=== PATIENT | male | born 1995 | race Caucasian/White ===

== ENCOUNTER 2018-02-24 07:19 | Emergency (ER) | payer MEDICAID, OTHER ==
[~2018-02-24] VITALS: Ht 195.6 cm; Wt 164.0 kg
[2018-02-24] MEDS ORDERED: KETOROLAC 30MG/ML VIAL IV STA (09:57)
[2018-02-24] MEDS ORDERED: SODIUM CHLORIDE 0.9% 1,000 ML IV ONE (09:57)
[2018-02-24] MEDS ORDERED: MECLIZINE 25MG TABLET PO ONE (10:00)
[2018-02-24] MEDS ORDERED: CEFTRIAXONE 1 G PREMIX 50 ML IV ONE (10:00)
[2018-02-24 11:03] VITALS: BP 142/84
== END 2018-02-24 11:06 | disposition home or self-care (01) ==
LOC: ER 08:13
DX: H66.90 Otitis media, unspecified, unspecified ear (principal); R51 Headache; H92.09 Otalgia, unspecified ear; R42 Dizziness and giddiness; E66.01 Morbid (severe) obesity due to excess calories; J45.909 Unspecified asthma, uncomplicated; F17.200 Nicotine dependence, unspecified, uncomplicated; I10 Essential (primary) hypertension
CPT/HCPCS: 96365; 96375; 99284; J0696; J1885; J7030; J8597

== ENCOUNTER 2018-05-26 03:09 | Emergency (ER) | payer MEDICAID ==
[~2018-05-26] VITALS: Ht 182.9 cm; Wt 122.0 kg
[2018-05-26 06:18] LABS: *BENZODIAZEPINES SCREEN URINE NEGATIVE (NEGATIVE); *COCAINE SCREEN URINE NEGATIVE (NEGATIVE)
[2018-05-26 06:19] LABS: *AMPHETAMINES SCREEN URINE NEGATIVE (NEGATIVE); *BARBITURATES SCREEN URINE NEGATIVE (NEGATIVE); CANNABINOID URINE SCREEN PRESUMTIVE POSITIVE (NEGATIVE); METHADONE URINE SCREEN NEGATIVE (NEGATIVE); OPIATES URINE SCREEN NEGATIVE (NEGATIVE); PHENCYCLIDINE URINE SCREEN NEGATIVE (NEGATIVE)
[2018-05-26] MEDS ORDERED: LIDOCAINE HCL 1% 20ML VIAL (Pyxis) INJ MC ONE (06:30)
[2018-05-26] MEDS ORDERED: BACITRACIN ZINC OINT UDPKT TOP ONE (06:30)
[2018-05-26] MEDS ORDERED: TETANUS, DIPHTHERIA, PERTUSSIS VAC/PF 0.5ML (>7YR OLD) IM ONE (06:30)
[2018-05-26] MEDS ORDERED: LIDOCAINE HCL/PF 1% 10 MG/ML 5ML VIAL IJ ONE (07:00)
[2018-05-26 09:18] LABS: BASOPHILS % 0.2 % (0.0-2.0); EOSINOPHILS % 1.6 % (0.0-5.0); HEMATOCRIT. 44.8 % (42.0-52.0); HEMOGLOBIN. 15.7 g/dL (14.0-18.0); LYMPHOCYTES % 23.5 % (20.0-50.0); MEAN CORPUSCULAR HEMOGLOBIN 32.6 pg (28.0-32.0); MEAN CORPUSCULAR VOLUME 93.1 fL (80.0-94.0); MEAN PLATELET VOLUME 6.9 fl (7.4-10.4); MONOCYTES % 7.1 % (2.0-8.0); NEUTROPHILS % 67.6 % (40.0-76.0); PLATELET 258 x1000/uL (130-400); RED BLOOD CELL COUNT 4.81 mill/uL (4.7-6.1); RED CELL DISTRIBUTION WIDTH 13.4 % (11.6-14.6)
[2018-05-26 09:26] LABS: CHLORIDE 107 mEq/L (98-107)
[2018-05-26 09:29] LABS: ETHANOL BLOOD 73 mg/dL
[2018-05-26] MEDS ORDERED: IBUPROFEN 600MG TABLET PO ONE (11:00)
[2018-05-27] MEDS ORDERED: ACETAMINOPHEN 325MG TABLET PO ONE (09:45)
[2018-05-28 09:58] VITALS: BP 138/69
== END 2018-05-28 10:04 | disposition home or self-care (01) ==
LOC: ER 06:07
DX: S51.812A Laceration without foreign body of left forearm, initial encounter (principal); S51.811A Laceration without foreign body of right forearm, initial encounter; S71.112A Laceration without foreign body, left thigh, initial encounter; S71.111A Laceration without foreign body, right thigh, initial encounter; X78.8XXA Intentional self-harm by other sharp object, initial encounter; F31.5 Bipolar disorder, current episode depressed, severe, with psychotic features; F43.8 Other reactions to severe stress; Y93.89 Activity, other specified; Y92.89 Other specified places as the place of occurrence of the external cause; F10.129 Alcohol abuse with intoxication, unspecified; Y90.3 Blood alcohol level of 60-79 mg/100 ml; F12.90 Cannabis use, unspecified, uncomplicated; Z23 Encounter for immunization
CPT/HCPCS: 12007; 36415; 80048; 80305; 80307; 80329; 85025; 90471; 90715; 99285; G0482; J3490; Z7610

== ENCOUNTER 2019-07-23 11:05 | Emergency (ER) | payer MEDICAID, MEDICARE ==
[~2019-07-23] VITALS: Ht 198.1 cm; Wt 154.3 kg
[2019-07-23 11:16] VITALS: BP 135/80
[2019-07-23] MEDS ORDERED: IBUPROFEN 800MG TABLET PO ONE (12:00)
== END 2019-07-23 13:16 | disposition home or self-care (01) ==
LOC: ER 11:05
DX: S69.82XA Other specified injuries of left wrist, hand and finger(s), initial encounter (principal); R51 Headache; J45.909 Unspecified asthma, uncomplicated; F32.9 Major depressive disorder, single episode, unspecified; F43.10 Post-traumatic stress disorder, unspecified; F12.10 Cannabis abuse, uncomplicated; F17.210 Nicotine dependence, cigarettes, uncomplicated; Z98.890 Other specified postprocedural states; Z90.49 Acquired absence of other specified parts of digestive tract; Y08.89XA Assault by other specified means, initial encounter; Y93.89 Activity, other specified; Y92.488 Other paved roadways as the place of occurrence of the external cause
CPT/HCPCS: 29130; 73140; 99283

== ENCOUNTER 2019-10-26 03:28 | Emergency (ER) | payer MEDICARE ==
[~2019-10-26] VITALS: Ht 195.6 cm; Wt 150.0 kg
[2019-10-26] MEDS ORDERED: IBUPROFEN 800MG TABLET PO ONE (04:45)
[2019-10-26 06:14] VITALS: BP 145/75
== END 2019-10-26 06:15 | disposition home or self-care (01) ==
LOC: ER 03:28
DX: S92.354A Nondisplaced fracture of fifth metatarsal bone, right foot, initial encounter for closed fracture (principal); Y93.41 Activity, dancing; Y92.89 Other specified places as the place of occurrence of the external cause; F12.90 Cannabis use, unspecified, uncomplicated
CPT/HCPCS: 29515; 73630; 99283